=== PATIENT | male | born 1955 | race Caucasian/White ===

== ENCOUNTER 2017-07-30 14:55 | Emergency (ER) | payer OTHER, SELFPAY ==
[2017-07-30 14:56] VITALS: BP 183/96; PULSE 85; RESP 16; TEMP 36.5; O2SAT 97; BMI 32.6
[2017-07-30 16:19] LABS: Absolute Lymphocyte Count 1.73 X10^3/ul (0.83-4.51); Absolute Neutrophil Count 5.3 X10^3/uL (2.0-7.7); Basophil# 0.03 X10^3/uL; Basophil% 0.4 % (0-1); Eosinophil# 0.26 X10^3/uL; Eosinophils% 3.3 % (0-5); Hematocrit 44.6 % (40-54); Hemoglobin 14.7 g/dl (13.0-16.5); Lymphocyte # 1.73 X10^3/ul (4.0); Lymphocyte % 21.9 % (19-41); Mean Corpuscular Hgb 28.1 pg (27.0-32.0); Mean Corpuscular Volume 85.3 fL (80-94); Mean Platelet Vol. 9.9 fl (6.2-12.0); Monocyte# 0.61 X10^3/uL; Monocyte% 7.7 % (0-10); Neutrophil # 5.26 X10^3/uL (2.7-7.7); Neutrophil % 66.7 % (47-70); Platelet Count 203 K/mm3 (150-450); RBC Distribution Width CV 13.5 % (11.6-14.6); RBC Distribution Width SD 42.1 fl (35.1-43.9); Red Blood Count 5.23 M/mm3 (4.6-6.2); White Blood Count 7.9 K/mm3 (4.4-11.0)
[2017-07-30 16:21] LABS: POSITIVE COUNT NO; POSITIVE DIFFERENTIAL NO; POSITIVE MORPHOLOGY NO
[2017-07-30 16:39] LABS: ALB/GLOB Ratio 1.2 RATIO (0.9-2.4); AST(SGOT) 10 U/L (15-37); Alanine Aminotransfer ALT/SGPT 19 U/L (16-61); Albumin, Serum 4.1 g/dL (3.2-5.0); Alkaline Phosphatase 89 U/L (45-117); Anion Gap 7 (5-15); BUN 20 mg/dL (7-18); BUN/Creat Ratio 29.4 RATIO (10-20); Calcium,Total 8.7 mg/dL (8.5-10.1); Chloride 109 mmol/L (98-107); Creatinine, Serum 0.68 mg/dL (0.70-1.30); EST Glomerular Filtration Rate 126 mL/min (>60); Est Glom Filt Rate - Afr Amer 153 mL/min (>60); Estimated Creatinine Clearance 128.38 ml/min; Globulin 3.3 g/dL (2.2-4.2); Glucose 94 mg/dL (74-106); Lipase 80 U/L (73-393); Potassium 3.8 mmol/L (3.5-5.1); Protein, Total 7.4 g/dL (6.4-8.2); Sodium Level 142 mmol/L (136-145)
--- NOTE | 2017-07-30 16:51 | ED.VISSUMM ---
- ER Visit Summary Date of Service: 07/30/17 Chief Complaint: Abdominal pain History of Present Illness: The patient is a 61 M who presents with abdominal pain for 1 month. His pain is epigastric. It is aching. It radiates through to the back. He complains of moderate pain currently. He denies nausea vomiting or diarrhea. No fevers. No urinary symptoms. He states that he has had outpatient renal ultrasounds as well as CT of the abdomen and pelvis but is not clear on the results. These were done at [facility]. Physical Examination: Afebrile vitals are notable for hypertension Heart regular rate and rhythm Lungs are clear Abdomen soft nondistended he has mild epigastric tenderness without guarding without rebound he does not have Flores's sign no appreciable mass Test Results: CBC CMP lipase unremarkable. I was able to review outpatient studies from [facility] his renal ultrasound was normal except for suspected right lower pole renal cyst. CT of the abdomen and pelvis was notable for multifocal splenule formation the largest suspected splenule abuts the posterior aspect of the pancreatic tail and cannot be distinguished from the pancreatic tail and so pancreatic neoplasm could not be entirely excluded. No acute process otherwise. Emergency Department Course and Treatment: Since laboratory studies are unremarkable. He is resting comfortably he was advised of his imaging results. He was advised of the need for further outpatient workup and I did advise that based on the imaging they could not completely exclude pancreatic neoplasm. He was advised he may benefit from gastroenterology referral. All questions answered at bedside. He understands return for new or worsening symptoms. He was discharged. Treatment Plan: [] Disposition: Discharge Impression: Abdominal pain This note was generated with [employer] dictation software. It may contain incorrect words, spelling, and punctuation that were not noted in review of the chart prior to signing ED Disposition - Plan for ED Patient: Chief Complaint: Abd Pain Referrals: Alexander Campos DO [Primary Care Provider] -
--- NOTE | 2017-07-30 16:54 | ED.DCSUM_ITS ---
- ER Visit Summary Date of Service: 07/30/17 Chief Complaint: Abdominal pain History of Present Illness: The patient is a 61 M who presents with abdominal pain for 1 month. His pain is epigastric. It is aching. It radiates through to the back. He complains of moderate pain currently. He denies nausea vomiting or diarrhea. No fevers. No urinary symptoms. He states that he has had outpatient renal ultrasounds as well as CT of the abdomen and pelvis but is not clear on the results. These were done at [facility]. Physical Examination: Afebrile vitals are notable for hypertension Heart regular rate and rhythm Lungs are clear Abdomen soft nondistended he has mild epigastric tenderness without guarding without rebound he does not have Flores's sign no appreciable mass Test Results: CBC CMP lipase unremarkable. I was able to review outpatient studies from [facility] his renal ultrasound was normal except for suspected right lower pole renal cyst. CT of the abdomen and pelvis was notable for multifocal splenule formation the largest suspected splenule abuts the posterior aspect of the pancreatic tail and cannot be distinguished from the pancreatic tail and so pancreatic neoplasm could not be entirely excluded. No acute process otherwise. Emergency Department Course and Treatment: Since laboratory studies are unremarkable. He is resting comfortably he was advised of his imaging results. He was advised of the need for further outpatient workup and I did advise that based on the imaging they could not completely exclude pancreatic neoplasm. He was advised he may benefit from gastroenterology referral. All questions answered at bedside. He understands return for new or worsening symptoms. He was discharged. Treatment Plan: [] Disposition: Discharge Impression: Abdominal pain This note was generated with [employer] dictation software. It may contain incorrect words, spelling, and punctuation that were not noted in review of the chart prior to signing ED Disposition - Plan for ED Patient: Chief Complaint: Abd Pain Referrals: Alexander Campos DO [Primary Care Provider] -
--- NOTE | 2017-07-30 16:54 | ED.DEP ---
ED Disposition - Plan for ED Patient: Chief Complaint: Abd Pain Instructions: ED Abdominal Pain Unkn Cause Male Referrals: Alexander Campos DO [Primary Care Provider] -
[2017-07-30 17:03] VITALS: PULSE 71; RESP 16; O2SAT 98
== END 2017-07-30 17:03 | disposition home or self-care (01) ==
PROVIDERS: Emergency Provider Emergency Medicine; Family Provider Family Medicine; PCP Family Medicine
DX: R10.13 Epigastric pain (principal); Z79.899 Other long term (current) drug therapy
CPT/HCPCS: 80053; 83690; 85025; 99283

== ENCOUNTER → 2017-08-03 14:28 | Outpatient (CLI) | payer OTHER, SELFPAY ==
[2017-08-03 15:53] LABS: AST(SGOT) 11 U/L (15-37); Alanine Aminotransfer ALT/SGPT 20 U/L (16-61); Albumin, Serum 4.3 g/dL (3.2-5.0); Alkaline Phosphatase 93 U/L (45-117); Bilirubin, Direct 0.12 mg/dL (0.00-0.30); Lipase 81 U/L (73-393); Protein, Total 7.3 g/dL (6.4-8.2)
== END ==
PROVIDERS: Family Provider Family Medicine; PCP Family Medicine; Visit Provider Internal Medicine Gastroenterology
DX: R10.9 Unspecified abdominal pain (principal)
CPT/HCPCS: 36415; 80076; 83690

== ENCOUNTER → 2017-08-13 15:06 | Outpatient (CLI) | payer OTHER, SELFPAY ==
[2017-08-13 19:02] LABS: Lipase 68 U/L (73-393)
[2017-08-15 11:27] LABS: Carbohydrate AG 19-9 2 U/mL (0-35)
== END ==
PROVIDERS: Family Provider Family Medicine; PCP Family Medicine; Visit Provider Internal Medicine Gastroenterology
DX: K86.89 Other specified diseases of pancreas (principal)
CPT/HCPCS: 36415; 83690; 86301

== ENCOUNTER → 2017-08-20 06:13 | Outpatient (CLI) | payer OTHER, SELFPAY ==
--- NOTE | 2017-08-20 06:34 | MRI_ITS ---
STUDY: MRI ABDOMEN WITH AND WITHOUT CONTRAST REASON FOR EXAM: Male, 61 years old. Abdominal pain. Follow-up of recent abnormal CT. TECHNIQUE: Standardized fat and water weighted pulse sequences were obtained in all 3 orthogonal planes post contrast administration. 10 ml of Gadavist contrast material was administered intravenously for the contrast portion of the examination. Several images are limited by patient motion. COMPARISON: CT of the abdomen and pelvis dated July 24, 2017. FINDINGS: The visualized lung bases are unremarkable. The visualized portions of the heart are within normal limits. Normal liver. Normal gallbladder and extrahepatic biliary system. The spleen has a lobular contour. There is no definite evidence for splenic mass. Normal pancreas. Normal bilateral adrenal glands. The right kidney has several areas of decreased enhancement and T1 hypointensity measuring approximately 212.8 mm in greatest dimension. There are also areas of decreased enhancement within the left kidney that have decreased T1 signal measuring up to 1.4 cm in size. These lesions appear to have increased T2 hyperintensity These likely represent cysts. Normal visualized stomach. There is no evidence for dilated bowel, or ascites. Stool is visible throughout the colon. The appendix is visualized and appears normal. Normal abdominal aorta. Normal inferior vena cava. Normal retroperitoneum. Normal abdominal wall. Normal osseous structures. MRI/MRI Abd WITH and W/O Contrast IMPRESSION: 1. There is no MR evidence for splenic mass. 2. Multiple small renal cysts. Electronically Signed: Donna Romeo MD at 9:44 EDT , Service support ,
== END ==
PROVIDERS: Family Provider Family Medicine; PCP Family Medicine; Visit Provider Internal Medicine Gastroenterology
DX: R10.9 Unspecified abdominal pain (principal); R93.8 Abnormal findings on diagnostic imaging of other specified body structures
CPT/HCPCS: 74183; A9585

== ENCOUNTER 2017-09-07 19:34 | Emergency (ER) | payer OTHER, SELFPAY ==
[2017-09-07 19:36] VITALS: BP 172/97; PULSE 93; RESP 18; TEMP 36.1; O2SAT 97; BMI 29.8
[2017-09-07 21:06] LABS: Absolute Lymphocyte Count 1.57 X10^3/ul (0.83-4.51); Absolute Neutrophil Count 4.5 X10^3/uL (2.0-7.7); Basophil# 0.02 X10^3/uL; Basophil% 0.3 % (0-1); Eosinophils% 2.9 % (0-5); Hematocrit 42.3 % (40-54); Lymphocyte # 1.57 X10^3/ul (4.0); Mean Corp Hgb Conc 33.1 g/gl (32-36); Mean Corpuscular Hgb 27.8 pg (27.0-32.0); Mean Corpuscular Volume 83.9 fL (80-94); Mean Platelet Vol. 10.2 fl (6.2-12.0); Monocyte# 0.56 X10^3/uL; Monocyte% 8.2 % (0-10); Neutrophil # 4.49 X10^3/uL (2.7-7.7); Neutrophil % 65.6 % (47-70); Platelet Count 205 K/mm3 (150-450); RBC Distribution Width CV 13.5 % (11.6-14.6); RBC Distribution Width SD 40.7 fl (35.1-43.9); Red Blood Count 5.04 M/mm3 (4.6-6.2); White Blood Count 6.8 K/mm3 (4.4-11.0)
[2017-09-07 21:07] LABS: POSITIVE COUNT NO; POSITIVE DIFFERENTIAL NO; POSITIVE MORPHOLOGY NO
[2017-09-07 21:14] LABS: Anion Gap 6 (5-15); BUN 16 mg/dL (7-18); BUN/Creat Ratio 19.5 RATIO (10-20); Calcium,Total 9.1 mg/dL (8.5-10.1); Chloride 109 mmol/L (98-107); Creatinine, Serum 0.82 mg/dL (0.70-1.30); EST Glomerular Filtration Rate 102 mL/min (>60); Est Glom Filt Rate - Afr Amer 123 mL/min (>60); Estimated Creatinine Clearance 106.46 ml/min; Glucose 104 mg/dL (74-106); Sodium Level 142 mmol/L (136-145)
[2017-09-07 22:12] LABS: AST(SGOT) 11 U/L (15-37); Alanine Aminotransfer ALT/SGPT 20 U/L (16-61); Albumin, Serum 4.2 g/dL (3.2-5.0); Alkaline Phosphatase 91 U/L (45-117); Bilirubin, Direct 0.11 mg/dL (0.00-0.30); Globulin 3.1 g/dL (2.2-4.2); Lipase 86 U/L (73-393); Protein, Total 7.3 g/dL (6.4-8.2)
[2017-09-07] MEDS: Morphine 4 MG/ML Syringe IV (22:26)
[2017-09-07] MEDS: Ondansetron 4 MG/2 ML Vial IV (22:26)
[2017-09-07] MEDS: 0.9% Normal Saline 1,000 ML 150 ML IV (22:26)
[2017-09-07 22:29] VITALS: BP 174/90; PULSE 74; RESP 16
--- NOTE | 2017-09-07 23:49 | ED.DCSUM_ITS ---
- ER Visit Summary Date of Service: 09/07/17 Chief Complaint: Abdominal pain History of Present Illness: The patient is a 61 M with a 2 month history of worsening abdominal pain. He points to epigastric and right upper quadrant region. He has been seen by his PCP as well as GI. He has had ultrasounds, CAT scan, MRI and MRA, as well as endoscopy. Patient states the next step is to get in ultrasound endoscopy. Patient presents emergency room tonight stating that his ibuprofen that he normally takes is no longer helping his pain. He has not had fever or chills. Pain is not worsened by movement. He states pain is not affected by food but he does eat mostly salads and tries to avoid fatty food. Physical Examination: Blood pressure on arrival was 172/97, other vitals normal. Patient sitting upright in bed no acute distress. He is nontoxic appearing. Head neck examination is unremarkable. Heart is regular rate and rhythm. He does have a 2/6 murmur noted. Lungs are clear. Abdomen is soft with mild tenderness in epigastric region. Hypoactive bowel sounds are noted. There is no guarding or rebound. Back examination reveals no focal tenderness. There is no CVA tenderness or rash. Test Results: CBC and chemistry studies are normal. LFTs and lipase are normal. Emergency Department Course and Treatment: I did review the prior MRI is performed to the hospital. I also reviewed notes from a previous ER visit which state that the testing from the outside hospital was personally reviewed at that time. I discussed with the patient that at this time I do not have a specific cause for his pain. He has undergone multiple test with further tests pending. I treated him with morphine and Zofran here. On repeat evaluation he is resting more comfortably. He will be given a short course of [place] for home if needed. Treatment Plan: [] Disposition: Discharge Impression: Abdominal pain, uncertain etiology This note was generated with [employer] dictation software. It may contain incorrect words, spelling, and punctuation that were not noted in review of the chart prior to signing ED Disposition - Plan for ED Patient: Disposition: Home or Assisted Living Chief Complaint: Abd Pain Instructions: ED Abdominal Pain Unkn Cause Male Prescriptions: Hydrocodone Bitart/Apap 5-325 [[place] 5MG-325MG] 1 tablet PO Q6H PRN PRN 3 Days # 10 tablet PRN Reason: Pain Referrals: Alexander Campos DO [Primary Care Provider] - Ramirez Douglas MD [STAFF PHYSICIAN] - As soon as possible
--- NOTE | 2017-09-07 23:49 | ED.DEP ---
ED Disposition - Plan for ED Patient: Disposition: Home or Assisted Living Chief Complaint: Abd Pain Instructions: ED Abdominal Pain Unkn Cause Male Prescriptions: Hydrocodone Bitart/Apap 5-325 [[place] 5MG-325MG] 1 tablet PO Q6H PRN PRN 3 Days #10 tablet PRN Reason: Pain Referrals: Alexander Campos DO [Primary Care Provider] - Ramirez Douglas MD [STAFF PHYSICIAN] - As soon as possible
[2017-09-08] MEDS: HYDROcodone Bitartrate/Apap 5/325 Tablet PO (00:14)
[2017-09-08 00:15] VITALS: BP 160/90; PULSE 78; RESP 16
== END 2017-09-08 00:16 | disposition home or self-care (01) ==
PROVIDERS: Emergency Provider Emergency Medicine; Family Provider Family Medicine; PCP Family Medicine
DX: R10.13 Epigastric pain (principal); Z86.73 Personal history of transient ischemic attack (TIA), and cerebral infarction without residual deficits
CPT/HCPCS: 80048; 80076; 83690; 85025; 96361; 96374; 96375; 99283; J7030; J2405

== ENCOUNTER → 2017-09-11 16:50 | Outpatient (CLI) | payer OTHER, SELFPAY ==
[2017-09-11 17:33] LABS: Erythrocyte Sedimentation Rate 4 mm/hr (0-20)
[2017-09-11 18:33] LABS: CRP < 2.90 mg/L (0.0-3.0)
== END ==
PROVIDERS: Family Provider Family Medicine; PCP Family Medicine; Visit Provider Internal Medicine Gastroenterology
DX: R10.9 Unspecified abdominal pain (principal)
CPT/HCPCS: 36415; 85652; 86140

== ENCOUNTER 2017-10-12 09:21 | Day surgery (SDC) | payer OTHER, SELFPAY ==
[2017-10-12] VITALS (10 sets, daily range): BP systolic 116–178; BP diastolic 70–93; PULSE 69–91; RESP 16; TEMP 36.5–36.7; O2SAT 95–100; BMI 29.9
--- NOTE | 2017-10-12 11:15 | RAD_ITS ---
STUDY: X-RAY - LUMBAR SPINE REASON FOR EXAM: Male, 61 years old. Celiac plexus block. TECHNIQUE: 9: Coned-down view(s) of the lumbar spine were obtained intraoperatively. COMPARISON: None FINDINGS: Fluoroscopic services provided for celiac plexus block. RAD/Fluor Guidance for Spine Inj IMPRESSION: Intraoperative fluoroscopic services provided for celiac plexus block. Electronically Signed: Jake Obrien MD at 14:20 EDT Tel [phone], Service support ,
== END 2017-10-12 13:19 | disposition home or self-care (01) ==
LOC: SDC 09:22 → AC 09:23
PROVIDERS: Family Provider Family Medicine; PCP Family Medicine; Visit Provider Anesthesiology Pain Medicine
PROC: 3E0T3BZ Introduction of Anesthetic Agent into Peripheral Nerves and Plexi, Percutaneous Approach (ICD-10-PCS; CPT 64530; principal; 2017-10-12 11:10)
DX: C25.9 Malignant neoplasm of pancreas, unspecified (principal); E11.9 Type 2 diabetes mellitus without complications; E78.00 Pure hypercholesterolemia, unspecified; Z95.2 Presence of prosthetic heart valve
CPT/HCPCS: 64483; 77003; J7120

== ENCOUNTER → 2017-10-15 13:28 | Outpatient (CLI) | payer OTHER, SELFPAY ==
--- NOTE | 2017-10-15 13:40 | MRI_ITS ---
STUDY: MRI ABDOMEN WITH AND WITHOUT CONTRAST REASON FOR EXAM: Male, 61 years old. F/U MRI ABD, PANCREATIC CA recheck, c/o abd and back pain TECHNIQUE: Standardized fat and water weighted pulse sequences were obtained in all 3 orthogonal planes post contrast administration. 9 ml of Gadavist contrast material was administered intravenously for the contrast portion of the examination. COMPARISON: ct 4.10.18 and mri of 5.7.18 FINDINGS: The visualized lung bases are unremarkable. The visualized portions of the heart are within normal limits. Normal liver. Normal gallbladder and extrahepatic biliary system. Normal spleen. There is a mass along the head of the pancreas. This measures 34 x 28mm. The mass surrounds the SMA. Invasion of the SMA is difficult to exclude. The mass has heterogeneous enhancement. There is a central area of low T1 signal measuring 13 mm within the lesion. This may be an area of necrosis. Normal bilateral adrenal glands. Multiple bilateral T2 hyperintensities in both kidneys consistent for cysts. These do not enhance. Normal visualized stomach. Normal small intestine. Normal colon. There is non-visualization of the appendix. There is diffuse atherosclerotic calcification of the abdominal aorta, without a demonstrated aneurysm. Normal inferior vena cava. Normal retroperitoneum. Normal abdominal wall. There are diffuse degenerative changes of the visualized lumbar spine. MRI/MRI Abd WITH and W/O Contrast IMPRESSION: There is a mass surrounding the SMA. The mass appears to extend from the pancreatic head. This confirms the patient's known pancreatic neoplasm. It appears stable in size since the prior study. Occlusion of the SMA is difficult to ascertain. Electronically Signed: Davonte Hernandez MD at 21:23 EDT , Service support ,
== END ==
PROVIDERS: Family Provider Family Medicine; PCP Family Medicine; Visit Provider Internal Medicine Medical Oncology
DX: C25.9 Malignant neoplasm of pancreas, unspecified (principal)
CPT/HCPCS: 74183; A9585; A4216

== ENCOUNTER 2017-10-22 07:16 | Day surgery (SDC) | payer OTHER, SELFPAY ==
[2017-10-22 07:38] VITALS: BP 154/78; PULSE 85; RESP 18; TEMP 36.6; O2SAT 100; BMI 29.5
[2017-10-22 07:56] LABS: Bedside Glucose 119 mg/dL (70-110)
[2017-10-22] MEDS: Cefazolin 2 GM in 0.9% Normal Saline 100 ML IV (08:50)
[2017-10-22] MEDS: Bupivacaine Mpf 0.5% 30 ML VIAL (09:04)
--- NOTE | 2017-10-22 09:52 | RAD_ITS ---
STUDY: X-RAY CHEST REASON FOR EXAM: Male, 61 years old. Port placement. TECHNIQUE: Single AP portable view of the chest. COMPARISON: None. FINDINGS: A left-sided portacatheter has been placed. The tip is at the junction of the superior vena cava and right atrium. The lungs are clear and expanded. There is no demonstrated pleural abnormality. Normal size heart. Normal mediastinum and davey. Normal visualized pulmonary arteries. Normal visualized aortic arch and descending thoracic aorta. Normal visualized thoracic spine. Normal visualized ribs, clavicles, and shoulders. There is no demonstrated abnormality of the visualized soft tissue structures of the upper abdomen. RAD/CXR for Line Placement IMPRESSION: The tip of the left grupo catheter is at the junction of the superior vena cava and right atrium. Electronically Signed: Jake Obrien MD at 10:28 EDT Tel [phone], Service support ,
[2017-10-22 09:53] VITALS: BP 128/84; BP 154/78; PULSE 84; RESP 16; TEMP 36.6; O2SAT 99
[2017-10-22 09:55] VITALS: BP 131/65; BP 154/78; PULSE 84; RESP 16; O2SAT 100
--- NOTE | 2017-10-22 09:56 | OP.PCM_ITS ---
Report of Operation Date of Procedure: 10/22/17 Pre-Operative Diagnosis: Z 45.2, pancreatic cancer Post-Operative Diagnosis: Same Surgery/Procedure Performed:: 1. Placement of left internal jugular port. 2. Use of ultrasound. 3. Use of fluoroscopy Type of Anesthesia:: MAC/Supplemental/Local Anesthesiologist: Paolo Aguilera Special Medications: Ancef 2 g IV ?1 Estimated Blood Loss (mL): <5cc Fluids Replaced: Per anesthesia Description of Procedure: After informed consent was given, the patient was brought to the operating room and placed in the supine position. Appropriate time out protocol was followed. He was then given IV conscious sedation for anesthesia. The patient 's bilateral upper chest and neck were then prepped with a surgical skin preparation and sterile surgical drapes were placed. After proper landmarks were ascertained, the skin at the upper left chest area was then infiltrated with 1:1 mixture of 1% lidocaine with epinephrine and 0.5% maricaine. A needle trocar was then inserted into the left internal jugular vein with ultrasound guidance-multiple vessels were viewed with u/s and the left IJ was chosen-- and there was good aspiration of venous blood. A wire was then threaded into the needle trocar and this was visualized under fluoroscopy to ensure that the wire was in the superior vena cava. Once this was done, then the needle trocar was removed. A small skin collin was made with an 11 blade knife at the wire entrance site. The dilator with the introducer sheath attached was then placed over the wire into the left internal jugular vein via the Seldinger technique and this was visualized under fluoroscopy. The dilator and sheath were in proper position as visualized by fluoroscopy. A subcutaneous pocket was then created caudad to the catheter insertion site. A transverse skin incision was made after the skin and subcutaneous tissues were infiltrated with local anesthetic. Blunt dissection was then used to create a space large enough for placement of the subcutaneous port. The catheter was then tunneled into the subcutaneous pocket. The wire and dilator were then removed. The catheter was then threaded into the introducer sheath and was positioned with its tip at the junction of the superior vena cava and the right atrium as visualized under fluoroscopy. The excess catheter was transected. The catheter was then attached to the subcutaneous port using manufacturers guidelines. The catheter was flushed with a heparin saline mixture prior to placement. Hemostasis was carefully controlled with electrocautery. The port was sutured to the subcutaneous fascia using 3-0 PDS suture at two sites. The port was then placed in the subcutaneous pocket and the sutures were ligated. The incision were reapproximated with interrupted subdermal 3-0 vicryl sutures. The skin was reapproximated with 3-0 nylon suture in a interrupted fashion. Steristrips were used for reinforcement of the skin closure at IJ insertion site and a sterile opsite dressings were applied. The patient tolerated the procedure well. Implants Used: [employer] PowerPort isp M.R.I. 6Fr Lot [id number] Grafts/Implants Used: [employer] PowerPort isp M.R.I. 6Fr Lot [id number] - Complications none
--- NOTE | 2017-10-22 09:58 | DCINST_ITS ---
Discharge Diet: No Restrictions May shower in (days): 5 - Keep the port clean and dry for 5 days and remain covered until sutures removed Lifting Restrictions: No lifting greater than 15 pounds with the left arm for 1 week Call your doctor if your incision/area has: Continuous Slow Oozing, Sudden Increased Bleeding, Increased Pain/ Swelling, Increased Redness, Foul Smelling Discharge, Swelling at the incision site Call your doctor if you observe: Fever of 101 or Higher Remove Dressing in (days):: 3 - Okay to remove the OpSite from the neck tomorrow Allergies/Adverse Reactions: Allergies No Known Allergies Allergy (Verified 10/19/17 15:10) Medications to take at Discharge Hydrocodone Bitart/Apap 5-325 [[place] 5MG-325MG] 1 tab PO Q6H PRN PRN 3 Days #10 tab 09/07/17 Ibuprofen [Ibu] 800 mg PO Q6H PRN PRN 10/16/17 Primary Care Physician: Alexander Campos DO [Primary Care Provider] - Test Results: Test results from this visit will be discussed in further detail at your follow- up appointment, if applicable. Please Follow Up With: Bessy Wakefield MD - After 5:00/weekends call [phone] with any concerns When: Call the office tomorrow for a follow-up appointment in 10 days to remove s
[2017-10-22 10:00] VITALS: BP 114/72; BP 154/78; PULSE 83; RESP 16; O2SAT 99
[2017-10-22 10:09] VITALS: BP 113/79; BP 154/78; PULSE 86; RESP 16; TEMP 36.4; O2SAT 99
[2017-10-22 10:35] VITALS: BP 154/78
== END 2017-10-22 10:37 | disposition home or self-care (01) ==
LOC: SDC 07:17 → AC 07:18
PROVIDERS: Family Provider Family Medicine; PCP Family Medicine; Visit Provider Surgery
PROC: (CPT 36571; principal; 2017-10-22 08:45)
DX: C25.0 Malignant neoplasm of head of pancreas (principal); Z45.2 Encounter for adjustment and management of vascular access device; Z95.2 Presence of prosthetic heart valve; Z85.47 Personal history of malignant neoplasm of testis; Z79.891 Long term (current) use of opiate analgesic
CPT/HCPCS: 00532; 36571; 71045; 77001; 82962; J7120; C1788

== ENCOUNTER → 2017-12-20 09:16 | Outpatient (CLI) | payer OTHER, SELFPAY | PROVIDERS: Family Provider Family Medicine; PCP Family Medicine; Visit Provider Nurse Practitioner Family | DX: C25.9 Malignant neoplasm of pancreas, unspecified (principal) | CPT/HCPCS: 74183; A9585 ==

== ENCOUNTER → 2018-06-11 13:24 | Outpatient (CLI) | payer OTHER, SELFPAY ==
[2018-05-20 10:00] VITALS: BMI 34.5
--- NOTE | 2018-06-11 13:26 | ECHODONC_ITS ---
Reason For Study: HTN Procedure This was a 2D Doppler, Color Flow transthoracic echocardiogram. Myocardial strain analysis was performed in this exam to aid in the assessment of cardiac function. Exam performed in department. Left Ventricle Normal LV size. Mild concentric left ventricular hypertrophy. Left ventricular systolic function is normal. The estimated ejection fraction is 55 %. The global longitudinal strain = -12.5% (abnormal). No regional wall motion abnormalities noted. Right Ventricle Normal RV size. Normal systolic function. Atria The left atrium is mildly enlarged. Normal right atrium. Mitral Valve There is mild to moderate mitral annular calcification. Trivial eccentric mitral valve insufficiency. Tricuspid Valve Normal tricuspid valve. Mild tricuspid valve insufficiency. Pulmonary artery systolic pressure is 25 mmHg. Aortic Valve Mean aortic valve gradient 10 mmHg. Peak aortic valve gradient 17 mmHg. Stable appearing bioprosthetic aortic valve apparatus. Great Vessels Normal aortic root. The pulmonary artery is normal size. Normal inferior vena cava. Pericardium/Pleural No pericardial effusion. MMode/2D Measurements & Calculations LVIDd: 4.0 cm IVSd: 1.2 cm LVOT diam: 2.0 cm LVIDs: 2.3 cm LVPWd: 1.1 cm LVOT area: 3.2 cm2 RVDd: 3.4 cm FS: 41.8 % Ao root diam: 2.9 cm LAV(MOD-bp): 64.5 ml LA A4 area: 22.9 cm2 LAV(MOD-bp) Indexed: 27.5 ml/m2 LAV(MOD-sp2): 51.4 ml LAV(MOD-sp4): 68.8 ml LA dimension(2D): 4.4 cm RA A4 area: 13.2 cm2 Time Measurements MV dec time: 0.32 sec Doppler Measurements & Calculations MV E max adonis: 118.6 cm/sec Lat Peak E' Adonis: 7.2 cm/sec Med Peak E' Adonis: 4.5 cm/sec MV A max adonis: 141.6 cm/sec E/E' lat: 16.4 E/E' med: 26.3 MV E/A: 0.84 MV V2 max: 157.2 cm/sec Ao V2 max: 210.1 cm/sec LV V1 max: 127.6 cm/sec MV max P.9 mmHg Ao max P.7 mmHg LV V1 max P.5 mmHg MV V2 mean: 89.5 cm/sec Ao V2 mean: 152.3 cm/sec LV V1 mean P.1 mmHg MV mean P.5 mmHg Ao mean P.2 mmHg LV V1 mean: 97.3 cm/sec MV V2 VTI: 38.4 cm Ao V2 VTI: 38.1 cm LV V1 VTI: 23.4 cm MVA(VTI): 2.0 cm2 KIMBERLY(I,D): 2.0 cm2 KIMBERLY(V,D): 1.9 cm2 SV(LVOT): 74.9 ml TR max adonis: 228.8 cm/sec MV P1/2t-pr_phl: 122.1 msec TR max P.1 mmHg Interpretation Summary Normal LV size. Mild concentric left ventricular hypertrophy. Left ventricular systolic function is normal. The estimated ejection fraction is 55 %. The global longitudinal strain = -12.5% (abnormal). Stable appearing bioprosthetic aortic valve apparatus. Mean aortic valve gradient 10 mmHg. Ordering Physician: Geovany Ceja Referring Physician: SHE HUA Performed By: Iona Cunningham, RDCS, RVT
== END ==
PROVIDERS: Family Provider Family Medicine; PCP Family Medicine; Referring Provider Internal Medicine Cardiovascular Disease; Visit Provider Internal Medicine Cardiovascular Disease
DX: I10 Essential (primary) hypertension (principal); C25.9 Malignant neoplasm of pancreas, unspecified; E11.9 Type 2 diabetes mellitus without complications; E78.5 Hyperlipidemia, unspecified; I31.3 Pericardial effusion (noninflammatory); I35.9 Nonrheumatic aortic valve disorder, unspecified; I51.7 Cardiomegaly; Z95.2 Presence of prosthetic heart valve; Z82.41 Family history of sudden cardiac death; Z79.899 Other long term (current) drug therapy
CPT/HCPCS: 0399T; 93306

== ENCOUNTER → 2018-09-23 | Outpatient (CLI) | payer OTHER, SELFPAY ==
[2018-09-12 12:02] VITALS: BMI 34.2
--- NOTE | 2018-09-23 06:05 | MRI_ITS ---
STUDY: MRI ABDOMEN WITH AND WITHOUT CONTRAST REASON FOR EXAM: Male, 62 years old. Pancreatic cancer TECHNIQUE: Standardized fat and water weighted pulse sequences were obtained in all 3 orthogonal planes post contrast administration. 20 IV Dotarem was administered for the contrast portion of the examination. COMPARISON: 12/20/2017 FINDINGS: The visualized lung bases are unremarkable. The visualized portions of the heart are within normal limits. Normal liver. Normal gallbladder and extrahepatic biliary system. Normal spleen. Normal pancreas. The previously described mass encasing the proximal superior mesenteric artery inferior to the body the pancreas and anterior to the uncinate process of the pancreas measures 2.3 x 2.3 cm which is essentially unchanged when compared with the prior study. 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 Normal bilateral adrenal glands. Normal right kidney. Normal left kidney. Normal visualized stomach. Normal small intestine. Normal colon. There is non-visualization of the appendix. Normal abdominal aorta. Normal inferior vena cava. Normal retroperitoneum. Normal abdominal wall. Normal osseous structures. 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 Electronically Signed: Alejandro Villegas MD at 9:24 EDT Tel , Service support ,
== END | disposition home or self-care (01) ==
LOC: MRI 06:05
PROVIDERS: Family Provider Family Medicine; PCP Family Medicine; Referring Provider Internal Medicine Medical Oncology; Visit Provider Internal Medicine Medical Oncology
DX: C25.9 Malignant neoplasm of pancreas, unspecified (principal)
CPT/HCPCS: 74183; A9575; A4216

== ENCOUNTER 2018-11-06 11:07 | Inpatient (IN) | payer OTHER, SELFPAY ==
[2018-09-12 12:02] VITALS: BMI 34.2
[2018-10-03 10:45] VITALS: BMI 34.4
--- NOTE | 2018-10-11 13:02 | HP.PCM_ITS ---
History and Physical History and Physical Patient Name: Humberto CordobaDOB: 1955 From: LINDA ANAND PA-C DATE OF SURGERY: 11/06/2018 SCHEDULED PROCEDURE: Right total hip arthroplasty HISTORY OF PRESENT ILLNESS: Preoperative history and physical exam was performed on October 11, 2018. This is a 62-year-old male who is been having ongoing pain in his right hip for 10-15 years. The past year the pain has progressively become worse. He can reach as high as a 10/10 with activity. Patient's pain has been constant, dull, aching, sharp, stabbing. Pain is increased with going up and down stairs, sitting, walking. He has difficult time getting dressed putting his socks and shoes on. He also has difficult time with mowing his yard. He has tripped secondary to his right hip pain. Patient has tried rest with no significant relief in symptoms. He has tried physical therapy and home exercises with no relief. He has been using occasional [id number] ibuprofen that takes the edge off. Patient denies previous surgery on the right hip. Patient has lost approximately 30 pounds. Patient does have medical history that is pertinent for inoperable pancreatic cancer, diabetes. Patient currently denies chest pain, shortness of breath, fevers chills, recent infections. Patient was treated with chemotherapy for the pancreatic cancer but is not currently on any treatments. We are obtaining surgical clearance from the primary care physician. REVIEW OF SYSTEMS: ROS: Const: Denies anorexia, change in appetite, fever, hard of hearing, vision problems and weight change. CV: Reports heart murmur, but denies chest pain, irregular heartbeat and peripheral vascular disease. Resp: Denies asthma, cough, pneumonia, sleep apnea, SOB, tuberculosis and wheezing. GI: Denies constipation, diarrhea, difficulty swallowing, heartburn, nausea, bloody stools and vomiting. : Urinary: denies incontinence. Musculo: Reports limp, trouble walking and weakness, but denies leg swelling. Skin: Denies Raynaud's, history of shingles and tattoo. Neuro: Reports numbness/tingling but denies ambulatory dysfunction, dizziness and tremor. Psych: Denies anxiety, depression, insomnia, mental illness and stress. Kaz/Lymph: Denies anemia, bleeding/bruising tendency and past transfusion. Reviewed and updated. PAST MEDICAL HISTORY: Advance Care Plan: Other Directive, LIVING WILL Effective Date: 10/11/2018 Other Directive, POA Effective Date: 10/11/2018 PMH: Medical Problems: Arthritis Cancer - TESTICULAR 1982, PANCREATIC Hypercholesterolemia, Diabetes Accidents: Fracture - LT FOOT,TOES, CHILD Surgical Hx: Tonsillectomy - CHILD LT Ankle - EARLY Microdiskectomy - L3 1995 L5-S1 2000 C5 2002 Spinal Fusion - C5-6 Testicular Cancer SX Hernia Repair - CHILD RT Arthroscopy - (11/10/2008) CASS @ [facility] Aortic Value Replaced - (09/2009) [facility] Prostate - (2015) Cervical - (03/2015) ADDED MORE HARDWARE Anesthesia Complications: Nausea Assistive Devices: None Reviewed and updated. SOCIAL HISTORY: SH: Marital: .Occupation: Retired.Work Status: Retired.Hand Dominance: Right- handed. Personal Habits: Cigarette Use: Never.Alcohol: Denies use.Drug Use: Denies Use.Enjoy Exercising: Exercises 1-3 X/Week. Reviewed, no changes. VITALS: Ht: 72 Wt: 248lb Wt k.493 BMI: 33.6 BP: 146/84 Pulse: 78 Resp: 60 T: 97.5 T: 36.4C ALLERGIES: No Known Drug Allergy MEDICATIONS: Lisinopril 20 mg 1 by mouth every day, Pantoprazole Sodium 20 mg take one tablet by mouth every day, Fentanyl 12 mcg/HR fentanyl patch to start after oxycontin cr 15 mg every 12 hour is exhausted start apply 1 patch every 72 hours as needed PRE-OP EXAM: General appearance:NORMAL Other: Eyes: Conjunctivae and lids: NORMAL Pupils: ERR Ears, Nose, Mouth, and Throat: NORMAL Other: Inspection of lips, teeth and gums: NORMAL Other: Neck: Examination of neck: no masses noted. Respiratory: Assessment of respiratory effort: NORMAL Other: Auscultation of lungs: clear to auscultation no wheezes, rhonchi or rales. Cardiovascular: Auscultation of heart: regular rate and rhythm, positive systolic murmur. Gastrointestinal: Exam of abdomen: soft, nontender, nondistended bowel sounds present. PHYSICAL EXAMINATION: Patient does walk with a antalgic gait. Left hip is cool to touch without erythema. There is tenderness to palpation of the greater trochanter. Range of motion left hip: Flexion 75, internal rotation to neutral, external rotation 20. Obligatory external rotation with flexion. Pain is reproduced with flexion, adduction, and internal rotation. Strength 5/5. Sensation intact to light touch. Neurovascularly intact. IMAGING STUDIES: X-rays of the right hip reveal severe osteoarthritis with joint space narrowing, subchondral sclerosis, and osteophyte formation. IMPRESSION: 1. Severe right hip osteoarthritis 2. Type 2 diabetes 3. Inoperable pancreatic cancer 4. Hypercholesterolemia 5. History of testicular cancer PLAN: Dr. Clem Beckford did discuss and review with the patient all treatment options including surgical versus nonsurgical options. Patient does wish to proceed with the above-stated procedure. Potential risks, benefits, and complications of the procedure were discussed in detail including but not limited to , infection, nerve and blood vessel damage, persistent pain, numbness, tingling, paresthesias, blood clot, pulmonary embolism, and requirement for possible further surgery. The patient expressed full understanding and has no further questions for the doctor. Patient does agree to proceed with the above-stated procedure and has signed the surgery consent form. This dictation was created using voice recognition software. Phonetic and/or gr ammatical errors may exist.. ___ I have re-examined the patient. There are no clinical changes since date of exam. ___ See progress notes for changes. ___ Dictated on admission Date: Time: Signature:
[2018-10-18 08:58] VITALS: BP 135/78; PULSE 69; RESP 16; TEMP 36.3; O2SAT 97; BMI 33.9
--- NOTE | 2018-10-18 09:23 | SDCEKG_ITS ---
Test Reason : Blood Pressure : / mmHG Vent. Rate : 071 BPM Atrial Rate : 071 BPM P-R Int : 178 ms QRS Dur : 078 ms QT Int : 382 ms P-R-T Axes : 049 007 048 degrees QTc Int : 415 ms Normal sinus rhythm Normal ECG Confirmed by ELIZABETH DESOUZA, AYO ([id number]), assignment desk editor MARGARET HASSAN ([id number]) on 10/21/2018 1:07:59 PM Referred By: Clem Beckford Confirmed By:AYO JOHNSON MD
[2018-10-18 09:48] LABS: Absolute Lymphocyte Count 0.99 X10^3/ul (0.83-4.51); Absolute Neutrophil Count 4.8 X10^3/uL (2.0-7.7); Basophil# 0.01 X10^3/uL; Basophil% 0.2 % (0-1); Eosinophil# 0.18 X10^3/uL; Eosinophils% 2.7 % (0-5); Hematocrit 40.4 % (40-54); Hemoglobin 13.1 g/dl (13.0-16.5); Lymphocyte # 0.99 X10^3/ul (4.0); Lymphocyte % 15.1 % (19-41); Mean Corp Hgb Conc 32.4 g/gl (32-36); Mean Corpuscular Hgb 27.6 pg (27.0-32.0); Mean Corpuscular Volume 85.2 fL (80-94); Mean Platelet Vol. 10.1 fl (6.2-12.0); Monocyte# 0.59 X10^3/uL; Neutrophil # 4.77 X10^3/uL (2.7-7.7); Neutrophil % 72.8 % (47-70); Platelet Count 255 K/mm3 (150-450); RBC Distribution Width CV 13.1 % (11.6-14.6); RBC Distribution Width SD 40.6 fl (35.1-43.9); Red Blood Count 4.74 M/mm3 (4.6-6.2); White Blood Count 6.6 K/mm3 (4.4-11.0)
[2018-10-18 09:53] LABS: POSITIVE COUNT NO; POSITIVE DIFFERENTIAL NO; POSITIVE MORPHOLOGY NO
[2018-10-18 10:07] LABS: Anion Gap 5 (5-15); BUN 19 mg/dL (7-18); BUN/Creat Ratio 24.4 RATIO (10-20); Calcium,Total 9.2 mg/dL (8.5-10.1); Chloride 108 mmol/L (98-107); Creatinine, Serum 0.78 mg/dL (0.70-1.30); EST Glomerular Filtration Rate 108 mL/min (>60); Est Glom Filt Rate - Afr Amer 130 mL/min (>60); Estimated Creatinine Clearance 110.54 ml/min; Glucose 119 mg/dL (74-106); Sodium Level 140 mmol/L (136-145)
[2018-10-18 10:11] LABS: Hemoglobin A1c 6.4 % (4.2-6.3)
[2018-11-06] VITALS (10 sets, daily range): BP systolic 108–149; BP diastolic 53–88; PULSE 72–81; RESP 14–16; TEMP 36.4–36.8; O2SAT 10–100; BMI 33.9
[2018-11-06] MEDS: Magnesium Sulfate 4gm/100mL 4 GM/100 ML IV.SOLN. IV (12:00)
[2018-11-06] MEDS: Lactated Ringers 1,000 ML 999 ML IV (12:15)
[2018-11-06] MEDS: Gabapentin 600 MG Tablet PO (12:16)
[2018-11-06] MEDS: Acetaminophen 500 MG Tablet 1000 MG PO ×2 (12:16→22:23)
[2018-11-06] MEDS: Scopolamine 1mg/72hr Patch 1 PATCH TRANSDERM. (12:17)
[2018-11-06 13:16] LABS: Bedside Glucose 115 mg/dL (70-110)
--- NOTE | 2018-11-06 13:45 | HIP_PTH ---
PATIENT: JACOB CANALES LOC: MS3 U#:[id number] AGE/SX: 63/M ROOM: MS312 RE11/06/[address]: Dr. Sue Santiago MD : 1955 BED: 1 DIS: 11/07/2018 SPEC #: [id number] RECD: 11/06/18 16:44 STATUS: ANGEL REJami #: [id number] MELE: 11/06/18 13:[address]: Clem Beckford DEPT: SURGICAL PATHOLOGY RECD BY: Evens Patel ENTERED: 11/07/18 10:16 SP TYPE: TOTAL HIP OTHR DR: MD Dr. Robert Kelly DO Dr. Nicholas F Kotsonis, MD Tissues: Hip, NOS Procedures: Decalcification bone/plaque Surgery Specimen Level IV HEADER OPERATION: Total hip anterior approach PRE-OP DIAGNOSIS: Severe right hip osteoarthritis TISSUE SUBMITTED: Right hip, femoral head, bone, tissue MICROSCOPIC DIAGNOSIS Bone and soft tissue of right hip, total right hip resection: Severe degenerative joint disease. FRENCH:maryuri 11/13/18 MICROSCOPIC DESCRIPTION Slides are reviewed. GROSS DESCRIPTION Received is one container designated right femoral head, bone and soft tissue. The specimen consists of a femoral head measuring 5.5 x 5.5 x 5 cm. The articular surface show focal area of erosion, eburnation and osteophyte formation. Also present in the specimen container is a detached piece of bone, most likely portion of femoral neck, measuring 5 x 4 x 1.5 cm. The soft tissue entirely consists of bone reamings and measures in aggregate 10 x 9 x 3 cm. Photographic Platemaker sections are submitted in two cassettes as follows: 1 - bone reamings, 2 - femoral head after decalcification. / ELIZ:jazmin 11/07/18 TC: 5 CPT: 32481, 57972
[2018-11-06] MEDS: Cefazolin 2 GM in 0.9% Normal Saline 100 ML IV (14:04)
--- NOTE | 2018-11-06 15:03 | RAD_ITS ---
STUDY: X-RAY - PELVIS AND RIGHT HIP REASON FOR EXAM: Male, 63 years old. Right hip replacement TECHNIQUE: Fluoroscopic views of the pelvis and hip. COMPARISON: March 30 2017 FINDINGS: Right hip prosthesis noted in anatomic alignment and position RAD/Hip 1 view with Pelvis IMPRESSION: Status post right hip prosthesis placement Electronically Signed: Alex Marx MD at 17:22 EDT , Service support ,
--- NOTE | 2018-11-06 15:45 | OP.PCM_ITS ---
Report of Operation Pre-Operative Diagnosis: Right hip primary osteoarthritis Post-Operative Diagnosis: Right hip primary osteoarthritis Surgery/Procedure Performed:: Right direct anterior total hip replacement Description of Surgical Findings:: Stable hip with equal leg lengths woolen tester: Alexey Krishnamurthy Type of Anesthesia:: General Anesthesiologist: Helder Solano Special Medications: 2 g Ancef, 1 g TXA at incision, 1 g TXA closure, 10 mg Decadron, joint cocktail (5 mg Duramorph, 30 mL of 0.5% Ropivicaine, 1000 units of epinephrine, 30 mg of Toradol) Specimen's removed: Bony cuts, acetabular reamings Estimated Blood Loss (mL): 500 Fluids Replaced: 1000 mL crystalloid Description of Procedure: C components used: 1. Accolade 2 Nimco femoral stem size 8 127? 2. Nimco trident 2 acetabular shell size 58 mm 3. Nimco X3 polyethylene f 4. Nimco Biolox delta 36mm, -5mm femoral head Brief history operative indications: 63 yo m who failed conservative measures for their hip osteoarthritis. X-rays were consistent with osteoarthritis including joint space narrowing, osteophyte formation and subchondral cysts. Total hip replacement was discussed with the patient with risks and benefits including but not limited to blood loss, DVTs, PEs, neurovascular damage, dislocation, general risks of anesthesia including loss of life. Patient demonstrated an understanding medical clearance is obtained the patient was consented for surgery. Procedure: On the date of procedure the patient's R hip was marked in the preoperative area. Patient was then taken back to the operating room where anesthesia assumed control of the C-spine and airway and administered anesthetic. Patient was transferred to the operating table and placed in the supine position. The hips were placed at the break of the bed and a sacral bump was placed. The R lower extremity was then prepped out in a sterile fashion using chlorhexidine while the surgeon scrubbed. The PA was vital in the positioning of the patient. Upon reentering the room the R lower extremity was draped in the standard orthopedic fashion and the incision was marked. A timeout was called and everyone agreed upon the side, the site, the procedure be performed, antibody given, and patient's identity. At this time incision was made through skin, subcutaneous tissue, and fat down to fascia. The fascia was then incised and the TFL was retracted laterally. A retractor was placed on the lateral border of the femoral neck. Attention was directed to the inferior portion of the approach and all crossing vessels were identified and appropriately coagulated. A retractor was then placed on the medial portion of the femoral neck. The anterior capsule was then cleared of all soft tissue and then H shaped capsulotomy was made. The retractors were then placed inside the capsule. The femoral neck was identified and a cleanup cut was made. At this time a power corkscrew was used to remove the femoral head. Attention was then turned toward the acetabulum where the soft tissues were ap propriately retracted and the acetabulum was sequentially reamed to 58 mm. A 58 mm cup was then selected and impacted into place. Acetabular liner was impacted into place and locking mechanism was verified. The position of the acetabular cup was then verified under live fluoroscopy. Attention was then turned to the femur. Soft tissue releases on the medial and lateral femoral neck were appropriately done, the leg was externally rotated and lateralized. A Kohli retractor was placed medially and proximally to the greater trochanter this allowed appropriate visualization and exposure of the femoral canal. Rongeour was then used to remove excess lateral bone. A canal finder and entry broach were used to open the proximal canal. Once we verified we were down the femoral canal we subsequently broached up to a size 7 femur. The appropriate neck was placed in the previously selected head was trialed with a -5 mm neck. Traction was pulled and the hip was reduced with internal rotat ion. Once it was appropriately reduced and stability was checked. There was minimal shuck, equal leg lengths and appropriate stability with hyperextension and external rotation as well as with 90? flexion and internal rotation. Fluoroscopy was then also used to verify the position of the components and leg lengths using the contralateral side for comparison. Leg lengths seem short and the stem did not completely fill the canal. At this time we dislocated hip. We broached to a size 8. A size 8 stem was selected it was slightly prouder than the previous broaching. Stem was placed and then we trialed again. This time we trialed with a -5 and the hip was too long. At this time we dislocated the hip. We removed the size 8 stem. The stem was damaged upon removal. We broached to size 8 stem deeper and placed a new size 8 stem. With a -5 trial this gave us appropriate leg lengths and offset. The hip was also stable. The trial components were then dislocated the proximal femur was again exposed and the components were removed from the wound. The final components were verified and opened. The wound was copiously irrigated out with normal saline. The acetabulum was checked for any residual debris. The final components were placed and impacted. Traction and internal rotation were again used to reduce the hip. After adequate reduction the hip remained stable with appropriate leg lengths. The final components were once again checked with live fluoroscopy and were found to be satisfactory. The wound was then copiously irrigated with normal saline once more, and hemostasis was obtained. Closure was then done using #1 Vicryl runner to close the fascia. A 2-0 vicryl interuppted sutures were used to close the subcutaneous skin. A 3-0 Monocryl and Steri-Strips were used for final skin closure. A Silverlon dressing was placed. Patient was awakened by anesthesia and transferred to the [facility]. Patient was then transferred to the PACU for recovery. Postoperative plan: Patient will get 24 hours postop antibiotics. Patient will get in-house physical therapy and will be weight-bear as tolerated. Patient will follow up in office in 2 weeks for a wound check and x-rays. During the course of the procedure the physician preschool teacher assistant played a vital role. His intimate knowledge of my steps in the procedure aided in safe and expedient completion of the procedure. The PA played a vital rolls in positioning particularly in obtaining the appropriate positioning of the sacral bump. The PA was also vital in the retraction of soft tissues during the exposure and especially the femoral work as this is a vital part of the procedure to prevent complications and fractures. The PA was also vital and protecting soft tissues during times of bony cuts and reaming. He also played a vital role in closure with my direct supervision. The PA was also important during reduction and dislocation of the joint and trials intraoperatively. Grafts/Implants Used: Nimco - Complications No intraoperative complications - Admit VTE Documentation VTE Present on Admission: No VTE Mechan Device Prophylaxis: SCD's, Thigh High SANDRITA Hose VTE Pharm Prophylaxis ordered?: Yes
--- NOTE | 2018-11-06 16:40 | RAD_ITS ---
STUDY: X-RAY - PELVIS AND RIGHT HIP REASON FOR EXAM: Male, 63 years old. Postop TECHNIQUE: 3 views of the pelvis and hip. COMPARISON: November 06, 2018. FINDINGS: Right hip prosthesis is noted in anatomic alignment and position. There is no evidence for acute pelvic fracture. There are mild degenerative changes of the left hip RAD/Hip Min 2 Views (Portable) IMPRESSION: Status post right hip prosthesis placement Electronically Signed: Alex Marx MD at 16:59 EDT , Service support ,
[2018-11-06 17:36] LABS: Bedside Glucose 160 mg/dL (70-110)
[2018-11-06] MEDS: dexAMETHasone 10 MG/ML Vial IV (18:23)
[2018-11-06] MEDS: Lactated Ringers 1,000 ML 125 ML IV ×2 (18:23→19:31)
--- NOTE | 2018-11-06 19:40 | PN_ITS ---
Subjective: 83-year-old male in normal health presented for scheduled right hip replacement due to pain. He underwent procedure today and he did well. He states that he is in his usual health and has not had any changes in his medications prior to this procedure. Of note, he does have a history of stage III pancreatic cancer that he is undergoing chemotherapy and intensive radiation therapy. 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 Vitals/I&O's: Vital Signs Temp Pulse Resp BP Pulse Ox 97.6 F L 78 16 109/60 95 11/06/18 18:04 11/06/18 18:04 11/06/18 18:04 11/06/18 18:04 11/06/18 18:04 Oxygen Flow Rate (L/min) 6 Oxygen Delivery Method Room Air Weight: 250 lb 3.594 oz Body Mass Index (BMI) 33.9 Finger Stick Blood Glucose 160 Intake and Output for Last 24 Hours 11/04/18 11/05/18 11/06/18 23:59 23:59 23:59 Intake Total 1800 / 1800 Balance 1800 / 1800 General: Alert, Oriented x3, Cooperative, No apparent distress HEENT: Atraumatic, PERRLA, EOMI, Normocephalic Oral: Moist Mucosa Neck: Supple, No JVD Lungs: Clear to auscultation, Normal air movement, No rhonchi, No wheeze, No rales, Diminished Cardiovascular: Regular rate, Regular Rhythm, Normal S1, Normal S2, No murmurs Abdomen: Soft, Non Tender, Non-Distended, No Hepato-splenomegaly Extremities: No edema, Capillary Refill Less than 3 Seconds Skin: No rashes, No breakdown, Incision - Dressing is clean, dry and intact Neurological: Neuro grossly intact, Sensory exam intact to light touch and pain Psych/Mental Status: Normal Affect, Appropriate Laboratory Results 11/06/18 12:09: POC Glucose 115 H 11/06/18 17:20: POC Glucose 160 H Current Medications Acetaminophen (Tylenol) 1,000 mg PO Q8 [facility] Enteral Nutritional Formula (Ensure Surgery) 237 ml PO TIDCM RAKESH Last Admin: 11/06/18 18:22 Dose: Not Given Documented by: Famotidine (Pepcid) 20 mg PO DAILY [facility] Fentanyl (Duragesic Patch) 25 mcg TRANSDERM. Q72H RAKESH Lactated Ringer's () 1,000 mls @ 125 mls/hr IV .Q8H RAKESH Last Admin: 11/06/18 19:31 Dose: 125 mls/hr Documented by: Cefazolin Sodium () 1 gm in 50 mls @ 150 mls/hr IV Q8 RAKESH Stop: 11/07/18 06:19 Insulin Human Lispro (Humalog Kwikpen (Bkc)) 1 - 6 unit SC Q4H PRN PRN; Protoco l PRN Reason: BG>/= 180, SEE PROTOCOL Stop: 11/06/18 19:45 Ketorolac Tromethamine (Toradol) 15 mg IV Q6H PRN PRN PRN Reason: MILD-MOD PAIN (1-10) Meloxicam (Mobic) 7.5 mg PO BID RAKESH Ondansetron HCl (Zofran) 4 mg IV Q8H PRN PRN PRN Reason: NAUSEA Oxycodone HCl (Oxyir) 2.5 mg PO Q4H PRN PRN PRN Reason: MOD-SEVERE PAIN (4-1010) Pantoprazole Sodium (Protonix) 40 mg PO DAILY RAKESH Promethazine HCl (Phenergan) 12.5 mg IM Q6H PRN PRN; Protocol PRN Reason: NAUSEA/VOMITING Rivaroxaban (Xarelto) 10 mg PO DAILY@0600 [facility] Senna/Docusate Sodium (Senokot-S, Maru-Colace) 2 tablet PO BID [facility] Sodium Chloride () 10 - 40 ml IV UD PRN PRN Reason: SALINE FLUSH Medical Necessity - Tobacco Use Smoking Status: Never smoker Tobacco Use: Non-smoker Assessment/Plan All Active Problems (Last Reviewed 10/03/18 @ 10:43 by Ellen Feng) Chemotherapy management, encounter for (Acute) Cancer-related pain (Acute) Educational circumstance (Acute) 1. Postop total right hip replacement -Pain management per primary -PT/OT -DVT per primary 2. HTN -Blood pressure is stable -Hold his lisinopril, continue with IV fluids and recheck his creatinine in the morning if his creatinine is normal then can restart his lisinopril. 3. Elevated A1c -A1c is 6.4, will recommend diet and exercise instead of medications at the moment 4. GERD -Stable -Continue with PPI 5. Pancreatic cancer stage III -Undergoing chemotherapy and radiation therapy -The cancer is wrapped around the superior mesenteric artery and therefore he is not an operative candidate -He gets monitoring MRIs every 3 months DVT: Xarelto Code Visit Inpatient E&M: [id number] [facility] Hosp L3
[2018-11-06] MEDS: Cefazolin 1 GM/50 ML BAG IV (22:23)
[2018-11-06] MEDS: Senna/Docusate Sodium 1 Tablet 2 TABLET PO (22:23)
[2018-11-07 03:17] VITALS: BP 107/47; PULSE 74; RESP 16; TEMP 36.8; O2SAT 93
[2018-11-07] MEDS: Acetaminophen 500 MG Tablet 1000 MG PO (05:44)
[2018-11-07] MEDS: Cefazolin 1 GM/50 ML BAG IV (05:45)
[2018-11-07] MEDS: Rivaroxaban 10 MG Tablet PO (05:45)
[2018-11-07] MEDS: oxyCODONE 5 MG Tablet 2.5 MG PO (05:48)
[2018-11-07] MEDS: 0.9% NaCl Peripheral Flush Adult/Peds IV (05:49)
[2018-11-07 05:51] VITALS: RESP 16; O2SAT 93
[2018-11-07 06:00] LABS: Hematocrit 31.7 % (40-54); Hemoglobin 9.8 g/dL (13.0-16.5); Mean Corp Hgb Conc 30.9 g/dL (32-36); Mean Corpuscular Hgb 26.8 pg (27.0-32.0); Mean Corpuscular Volume 86.8 fL (80-94); Mean Platelet Vol. 10.2 fl (6.2-12.0); Platelet Count 236 K/mm3 (150-450); RBC Distribution Width SD 41.2 fl (35.1-43.9); Red Blood Count 3.65 M/mm3 (4.6-6.2); White Blood Count 7.9 K/mm3 (4.4-11.0)
[2018-11-07 06:21] LABS: Anion Gap 6 (5-15); BUN 18 mg/dL (7-18); BUN/Creat Ratio 23.3 RATIO (10-20); Calcium,Total 8.3 mg/dL (8.5-10.1); Chloride 106 mmol/L (98-107); Creatinine, Serum 0.77 mg/dL (0.70-1.30); EST Glomerular Filtration Rate 109 mL/min (>60); Est Glom Filt Rate - Afr Amer 132 mL/min (>60); Estimated Creatinine Clearance 110.58 ml/min; Glucose 122 mg/dL (74-106); Potassium 4.5 mmol/L (3.5-5.1); Sodium Level 140 mmol/L (136-145)
[2018-11-07 09:29] VITALS: BP 93/59; PULSE 97; RESP 16; TEMP 37.1; O2SAT 98
[2018-11-07] MEDS: Senna/Docusate Sodium 1 Tablet 2 TABLET PO (10:01)
[2018-11-07] MEDS: Famotidine 20 MG Tablet PO (10:01)
[2018-11-07] MEDS: Meloxicam 7.5 MG Tablet PO (10:01)
[2018-11-07] MEDS: Pantoprazole Sodium 40 MG Tablet PO (10:01)
--- NOTE | 2018-11-07 10:12 | PN.ORTHO_ITS ---
Subjective: The patient was sitting in bedside chair upon examination. Patient denies any chest pain, shortness of breath, dizziness, lightheadedness, nausea or vomiting, or calf pain. Pain is controlled on medications. No adverse overnight events. Overall patient is doing very well and does wish to go home today. Objective: Vital signs stable and afebrile. Patient is able to plantarflex and dorsiflex actively. Sensation is intact to light touch to saphenous, sural, superficial and deep peroneal, and tibial distribution. Dressing is clean dry and intact. Negative Homans bilaterally, negative signs and symptoms of DVT. - Physical Exam General: Alert, Oriented x3, Cooperative, No apparent distress Vital Signs Temp Pulse Resp BP Pulse Ox 98.7 F 97 16 93/59 L 98 11/07/18 09:29 11/07/18 09:29 11/07/18 09:29 11/07/18 09:29 11/07/18 09:29 Oxygen Flow Rate (L/min) 6 Oxygen Delivery Method Room Air Weight: 113.5 kg Body Mass Index (BMI) 33.9 Finger Stick Blood Glucose 160 Intake and Output for Last 24 Hours 11/05/18 11/06/18 11/07/18 23:59 23:59 23:59 Intake Total 1800 / 2700 1825 / 1825 Output Total 700 / 700 Balance 1800 / 2200 1125 / 1125 Laboratory Tests Past 24 Hrs 11/07/18 11/07/18 05:40 05:40 WBC 7.9 RBC 3.65 L Hgb 9.8 L Hct 31.7 L MCV 86.8 MCH 26.8 L MCHC 30.9 L RDW Std Deviation 41.2 RDW Coeff of Raciel 13.0 Plt Count 236 MPV 10.2 Sodium 140 Potassium 4.5 Chloride 106 Carbon Dioxide 28.0 Anion Gap 6 BUN 18 Creatinine 0.77 Estim Creat Clear Calc 110.58 Est GFR (MDRD) Af Amer 132 Est GFR (MDRD) Non-Af 109 BUN/Creatinine Ratio 23.3 H Glucose 122 H Calcium 8.3 L POC Glucose 11/06/18 11/06/18 17:20 12:09 POC Glucose 160 H 115 H Medical Necessity - Tobacco Use Smoking Status: Never smoker Tobacco Use: Non-smoker Assessment/Plan All Active Problems (Last Reviewed 10/03/18 @ 10:43 by Ellen Feng) Chemotherapy management, encounter for (Acute) Cancer-related pain (Acute) Educational circumstance (Acute) 1. S/P right direct anterior total hip arthroplasty POD #1 2. Continue Pain Medications: Tylenol and OxyIR 3. DVT Prophylaxis: Xarelto 4. PT/OT: Weightbearing as tolerated 5. H & H: 9.8/31.7, asymptomatic 6. Continue postoperative medical management per medicine 7. Encouraged Incentive Spirometry 8. Disposition: Plan will be for possible discharge home today as long as patient's pain is well controlled and tolerates physical therapy. Case was discussed with medicine. Prescriptions will be sent to primary pharmacy and n arcotic will be attached to chart. Patient will follow-up per postop instructions.
--- NOTE | 2018-11-07 10:20 | DCINST_ITS ---
Discharge Diet: No Restrictions Discharge Activity: May Not Drive - while taking narcotic pain medications. May shower in (days): 1 - Turn dressing away from water Ice area for (Minutes): 20 - Every 1-2 hours while awake Weight Bearing Status: Weight bearing as tolerated Elevate: Operative Extremity Additional Activity Instructions:: Wear elastic stockings for 2 weeks. DO NOT use alcohol with narcotic pain medication. DO NOT make important decisions while taking narcotic medication. If you have problems with taking your medication (rash, itching, nausea, etc.) call the office at once. Call your doctor if your incision/area has: Increased Pain/ Swelling, Increased Redness, Foul Smelling Discharge Call your doctor if you observe: Fever of 101 or Higher Remove Dressing in (days):: 4 - Okay to remove dressing on November 11, 2018 Additional Instructions: Follow [facility] postop instructions Allergies/Adverse Reactions: Allergies No Known Allergies Allergy (Verified 10/18/18 08:53) Medications to take at Discharge Fentanyl 1 ea TD UD 10/23/17 Lisinopril 20 mg PO DAILY 10/18/18 Pantoprazole Sodium [Protonix] 40 mg PO DAILY 10/18/18 Acetaminophen [Tylenol] 1,000 mg PO Q8 #100 tab 11/07/18 Meloxicam [Mobic] 7.5 mg PO BID #30 tab 11/07/18 Oxycodone [Oxyir] 2.5 mg PO Q4H PRN PRN #10 tab 11/07/18 Rivaroxaban [Xarelto] 10 mg PO DAILY@0600 #13 tab 11/07/18 Senna/Docusate Sodium [Senokot-S] 2 tab PO BID #20 tab 11/07/18 The following prescriptions were given: Meloxicam [Mobic] 7.5 mg PO BID #30 tab Transmission Status: Pending to [facility] Oxycodone [Oxyir] 2.5 mg PO Q4H PRN PRN #10 tab PRN Reason: Mod-Severe Pain () Prescription Printed Senna/Docusate Sodium [Senokot-S] 2 tab PO BID #20 tab Transmission Status: Pending to [facility] Acetaminophen [Tylenol] 1,000 mg PO Q8 #100 tab Transmission Status: Pending to [facility] Rivaroxaban [Xarelto] 10 mg PO DAILY@0600 #13 tab Transmission Status: Pending to [facility] Primary Care Physician: Robert Rodríguez DO [Primary Care Provider] - Test Results: Test results from this visit will be discussed in further detail at your follow- up appointment, if applicable. Please Follow Up With: [facility] When: 11/11/18 @ 8:00 am Please Follow Up With: Alexey Krishnamruthy PA-C When: 11/20/18 @ 8:15 am
--- NOTE | 2018-11-07 11:11 | CASEMGMT ---
RN CM Assessment Presentation: Rt anterior total hip Intro role of CM and purpose of RN CM assessment to patient in room. Demographics, PCP and Pharmacy verified. Pt states he lives @ home with his who will be able to assist him. can drive to f/u and physical therapy. Appt for Therapy listed for 11/11/18 @ 8 am @ [facility]. PCP: Dr. Robert Rodríguez Specialists: Preferred Pharmacy: [facility] Insurance: MMO Prescription Benefit: yes. [employer] savings card given to pt. LNOK: , Teena Gallo Living Arrangements: Lives independently in home. is able to assist pt at home. No care needs identified. See PT/OT notes for details. Transportation: is able to drive DME: walker, commode, grab bars, walk in shower. HHC: none Patient DC goals: Home with Outpt PT DC PLAN: Home with Outpt PT Graeme MORAN RN ACM
--- NOTE | 2018-11-07 12:46 | PCM.PROGNOTE ---
<Aneudy Aguilar - Last Filed: 11/07/18 12:46> Subjective: doing well. Some pain and muscle tightness in the thigh of the right leg. ROM intact. No SOB/fevers/chills. No plans for further treatment of his pancreatic cancer. - Physical Exam General: Alert, Oriented x3, Cooperative HEENT: Atraumatic, PERRLA, EOMI, Normocephalic Neck: Supple, No JVD, Negative Carotid Bruits Lungs: Clear to auscultation, Normal air movement Cardiovascular: Regular rate, No murmurs Abdomen: Bowel Sounds Present, Soft, Non Tender Extremities: No edema, Capillary Refill Less than 3 Seconds Skin: No rashes, No breakdown Musculoskeletal: No Tenderness to Palpation of Joints or Extremities Neurological: Cranial nerves II-XII grossly intact Psych/Mental Status: Normal Affect, Appropriate, Alert and oriented to time, place, person, mood and affect Vital Signs Temp Pulse Resp BP Pulse Ox 98.7 F 97 16 93/59 L 98 11/07/18 09:29 11/07/18 09:29 11/07/18 09:29 11/07/18 09:29 11/07/18 09:29 Oxygen Flow Rate (L/min) 6 Oxygen Delivery Method Room Air Weight: 250 lb 3.594 oz Body Mass Index (BMI) 33.9 Finger Stick Blood Glucose 160 Intake and Output for Last 24 Hours 11/05/18 11/06/18 11/07/18 23:59 23:59 23:59 Intake Total 1800 / 2700 1825 / 1825 Output Total 700 / 700 Balance 1800 / 2200 1125 / 1125 Laboratory Tests Past 24 Hrs 11/07/18 11/07/18 05:40 05:40 WBC 7.9 RBC 3.65 L Hgb 9.8 L Hct 31.7 L MCV 86.8 MCH 26.8 L MCHC 30.9 L RDW Std Deviation 41.2 RDW Coeff of Raciel 13.0 Plt Count 236 MPV 10.2 Sodium 140 Potassium 4.5 Chloride 106 Carbon Dioxide 28.0 Anion Gap 6 BUN 18 Creatinine 0.77 Estim Creat Clear Calc 110.58 Est GFR (MDRD) Af Amer 132 Est GFR (MDRD) Non-Af 109 BUN/Creatinine Ratio 23.3 H Glucose 122 H Calcium 8.3 L POC Glucose 11/06/18 11/06/18 17:20 12:09 POC Glucose 160 H 115 H Medical Necessity - Tobacco Use Smoking Status: Never smoker Tobacco Use: Non-smoker Assessment/Plan All Active Problems (Last Reviewed 10/03/18 @ 10:43 by Ellen Feng) Chemotherapy management, encounter for (Acute) Cancer-related pain (Acute) Educational circumstance (Acute) 1. Right total hip post op D# - as per ortho. Plans to return home today. 2. Pancreatic cancer stage III - no further treatment. Appears to be doing well for now. MRI q3 months per Dr. Carrasco. 3. Elevated A1C - prediabetes 6.4 A1C. Weight loss, exercise, dietary change recommended 4. GERD - PPI 5. HTN - stable DVT ppx: xarelto This patient was seen by Aneudy Aguilar PA-C under the supervision of Dr. Santiago. <Sue Santiago - Last Filed: 11/07/18 14:02> - Physical Exam Vital Signs Temp Pulse Resp BP Pulse Ox 98.7 F 97 16 93/59 L 98 11/07/18 09:29 11/07/18 09:29 11/07/18 09:29 11/07/18 09:29 11/07/18 09:29 Oxygen Flow Rate (L/min) 6 Oxygen Delivery Method Room Air Weight: 113.5 kg Body Mass Index (BMI) 33.9 Finger Stick Blood Glucose 160 Intake and Output for Last 24 Hours 11/05/18 11/06/18 11/07/18 23:59 23:59 23:59 Intake Total 1800 / 2700 1825 / 1825 Output Total 700 / 700 Balance 1800 / 2200 1125 / 1125 Laboratory Tests Past 24 Hrs 11/07/18 11/07/18 05:40 05:40 WBC 7.9 RBC 3.65 L Hgb 9.8 L Hct 31.7 L MCV 86.8 MCH 26.8 L MCHC 30.9 L RDW Std Deviation 41.2 RDW Coeff of Raciel 13.0 Plt Count 236 MPV 10.2 Sodium 140 Potassium 4.5 Chloride 106 Carbon Dioxide 28.0 Anion Gap 6 BUN 18 Creatinine 0.77 Estim Creat Clear Calc 110.58 Est GFR (MDRD) Af Amer 132 Est GFR (MDRD) Non-Af 109 BUN/Creatinine Ratio 23.3 H Glucose 122 H Calcium 8.3 L POC Glucose 11/06/18 17:20 POC Glucose 160 H Assessment/Plan This patient was seen in conjunction with GERALDO Wilkins. I have independently interviewed and examined the patient and reviewed pertinent historical, laboratory, and other data. Please refer to GERALDO Wilkins note for his patient's presentation, findings, and recommendations. I have reviewed and his note and concur with his documentation Patient was seen and examined. His pain is controlled. He is working with physical and occupational therapy. He denied any new complaints. He underwent right total hip replacement yesterday. His vitals look stable. He is being discharged today. Physical Exam: Gen: Comfortable, not pale, not jaundiced CVS:HS I +II, regular, no murmurs RESP: Diminished at lung bases GI: BS present and normal, soft, nontender, no palpable organs EXT:No edema, tenderness over the right hip, dressing anterior, intact, clean ASSESSMENT: 1. Postop anemia secondary to blood loss 2. Postop day #1 status post total hip replacement 3. Hypertension 4. Pancreatic cancer stage III 5. Prediabetes Code Visit Inpatient E&M: 58311 Subs Hosp L2
== END 2018-11-07 14:12 | disposition home or self-care (01) | DRG 470 ==
LOC: ACINP 11:09 → MS3 15:04
PROVIDERS: Admitting Provider Specialist; Family Provider Family Medicine; PCP Family Medicine; Referring Provider Specialist; Visit Provider Internal Medicine
PROC: 0SR90JA Replacement of Right Hip Joint with Synthetic Substitute, Uncemented, Open Approach (ICD-10-PCS; CPT 27284; principal; 2018-11-06 13:20)
DX: M16.11 Unilateral primary osteoarthritis, right hip (principal); C25.9 Malignant neoplasm of pancreas, unspecified; D62 Acute posthemorrhagic anemia; Z79.899 Other long term (current) drug therapy; I10 Essential (primary) hypertension; K21.9 Gastro-esophageal reflux disease without esophagitis; E11.9 Type 2 diabetes mellitus without complications; E78.00 Pure hypercholesterolemia, unspecified; Z85.47 Personal history of malignant neoplasm of testis
CPT/HCPCS: 73501; 73502; 76000; 80048; 82962; 83036; 85025; 85027; 87081; 88305; 88311; 93005; 97110; 97162; 97166; 97530; 99251; C1776; J7120; A4216; G0463

== ENCOUNTER → 2019-01-03 | Outpatient (CLI) | payer OTHER, SELFPAY ==
[2018-10-03 10:45] VITALS: BMI 34.4
--- NOTE | 2019-01-03 08:48 | MRI_ITS ---
ACR Level 3 findings have been noted. An addendum which confirms receipt of the report will follow. STUDY: MRI ABDOMEN WITH AND WITHOUT CONTRAST REASON FOR EXAM: Male, 63 years old. There are cancer follow-up. Pain. TECHNIQUE: Standardized fat and water weighted pulse sequences were obtained in all 3 orthogonal planes post contrast administration. 23 ML Dotarem was administered for the contrast portion of the examination. COMPARISON: September 23, 2018 FINDINGS: The visualized lung bases are unremarkable. The visualized portions of the heart are within normal limits. There are multiple, greater than 25, peripherally enhancing masses in the liver measuring 1.5 to 2.5 cm.s Normal gallbladder and extrahepatic biliary system. Normal spleen. There is stable 1.9 cm mass adjacent to the tail of the pancreas suggesting splenule. There are additional small splenules. There is improvement of previously noted mass surrounding the proximal superior mesenteric artery with residual 1.0 cm diminished signal region. Normal bilateral adrenal glands. Small renal cysts. No hydronephrosis.. Normal visualized stomach. Normal small intestine. Normal colon. The appendix is visualized and appears normal. Normal abdominal aorta. Normal inferior vena cava. Normal retroperitoneum. Normal abdominal wall. Normal osseous structures. MRI/MRI Abd WITH and W/O Contrast IMPRESSION: Multiple masses in liver consistent with metastatic disease. Continued improvement of previously noted mass adjacent to the superior mesenteric artery. Electronically Signed: Randall Higgins MD at 11:12 EDT , Service support ,
[2019-01-03 09:35] LABS: CREATININE FINGERSTICK 0.8 mg/dL (0.70-1.30); EGFR FINGERSTICK > 60.0000 mL/min (>60)
== END | disposition home or self-care (01) ==
LOC: MRI 08:43
PROVIDERS: Family Provider Family Medicine; PCP Family Medicine; Referring Provider Internal Medicine Medical Oncology; Visit Provider Internal Medicine Medical Oncology
DX: C25.9 Malignant neoplasm of pancreas, unspecified (principal)
CPT/HCPCS: 74183; A9575

== ENCOUNTER → 2019-01-08 | Outpatient (CLI) | payer OTHER, SELFPAY ==
[2019-01-07 10:59] VITALS: BMI 31.7
[2019-01-08] VITALS (9 sets, daily range): BP systolic 117–177; BP diastolic 62–98; PULSE 88–101; RESP 10–18; TEMP 36.6; O2SAT 94–99; BMI 31.1
--- NOTE | 2019-01-08 | ASPIGT_PTH ---
PATIENT: JACOB CANALES LOC: [place] U#:[id number] AGE/SX: 63/M ROOM: RE01/08/[address]: Dr. Nisa Cooley MD : 1955 BED: DIS: 01/08/2019 SPEC #: [id number] RECD: 01/08/19 09:50 STATUS: ANGEL REQ #: [id number] MELE: 01/08/19 00:[address]: Brett Carrasco DEPT: SURGICAL PATHOLOGY RECD BY: Rj Silva ENTERED: 01/08/19 10:15 SP TYPE: ASP RAD OTHR DR: DO Dr. Nisa Jeffrey MD Tissues: Liver, NOS Procedures: FNA Specimen Adequacy Special Stain Group II Surgery Specimen Level V Imprint (control) Comments: @ Ordering doctor for SSII edited from to DR.JPRAH English by QUYNH at 01/10/19 0957 @ Ordering doctor for SUV edited from to DR.JPRAH English by QUYNH at 01/10/19 0957 @ Ordering doctor for IMPRINT edited from to DR.JPRAH English by QUYNH at 01/10/19 0957 @ Ordering doctor for FNASA edited from to DR.JPRAH English by QUYNH at 01/10/19 0957 @ Submitting doctor edited from to DR.JPRAH English by QUYNH at 1955 HEADER OPERATION: CT guided liver biopsy PRE-OP DIAGNOSIS: Liver mass TISSUE SUBMITTED: Liver mass, 18 gauge x5 MICROSCOPIC DIAGNOSIS Liver mass, CT-guided core biopsy: Consistent with metastatic non-small cell carcinoma, favor adenocarcinoma. See comment. SJ:jazmin 01/09/19 COMMENT The specimen is evaluated at the time of CT guided core biopsy by Dr. Calvert. Immediate Evaluation: Set #1 = Negative for malignant cells (one touch imprint). Set #2 = Atypical cells suspicious for non-small keyona carcinoma are noted (two touch imprints). Immunohistochemistry ([id number]) supports the above diagnosis; IHC profile and morphology are consistent with clinical impression of pancreatic primary. Please refer to IHC report ([id number]) for results of mismatch repair of proteins. The specimen is sent for NTRK gene studies to [facility] and results will be reported as an addendum. Please make reference to previous specimen from [facility] dated 10/04/2017 ([id number]) pancreas mass, uncinate process, fine needle aspiration with diagnosis of positive for malignant cells, adenocarcinoma. This case is discussed with Dr. Carrasco on 01/10/19. Case has been reviewed in consultation with Dr. Segura who concurs with the above diagnosis. IDC:AM MICROSCOPIC DESCRIPTION Slides are reviewed. GROSS DESCRIPTION Received in fixative is one container labeled with the patient's name and designated liver, CT-guided core biopsy. The specimen consists of multiple elongated fragments of de la fuente soft tissue that in aggregate measure 2.5 x 0.3 x 0.1 cm. The entire specimen is submitted in one cassette. Three touch imprints are prepared at the time of core biopsy. / SJ:rg 12/08/18 TC:0 CPT: 72337, 69561, 07445 ADDENDUM ADDENDUM ADDENDUM ADDENDUM ADDENDUM ADDENDUM ADDENDUM ADDENDUM ADDENDUM ADDENDUM ADDENDUM ADDENDUM 01/31/2019 10:28 ADDENDUM 01/31/2019 10:28 ADDENDUM 01/31/2019 10:28 ADDENDUM 01/31/2019 10:28 ADDENDUM 01/31/2019 10:28 MOLECULAR PATHOLOGY REPORT, AMP FUSION ASSAY FROM [facility] ([facility] / [employer]) RESULTS: Targeted RNA next generation sequencing (NGS) using Anchored Multiplex PCR (AMP) detected no fusion transcripts in the specified exons of the following genes: ALK (1,3,17,19-22,29), RET (1,8-13,19), and ROS1 (1,31-37,43). No NTRK 1/2/3 fusions were identified. INTERPRETATION: NEGATIVE for ALK / RET / ROS1 rearrangement. Please see complete report in e-chart or EMR for further details
--- NOTE | 2019-01-08 | IMM_PTH ---
PATIENT: JACOB CANALES LOC: [place] U#:[id number] AGE/SX: 63/M ROOM: RE01/08/[address]: Dr. Nisa Cooley MD : 1955 BED: DIS: 01/08/2019 SPEC #: [id number] RECD: 01/09/19 12:32 STATUS: SOUMarito REQ #: [id number] MELE: 01/08/19 00:[address]: Brett Carrasco DEPT: IMMUNOHISTOCHEMISTRY RECD BY: Helena Diaz ENTERED: 01/09/19 12:34 SP TYPE: IMMUNO OTHR DR: DO Dr. Nisa Jeffrey MD Tissues: Liver, NOS Procedures: MSH2 (add) MLH-1 (add) MSH6 (add) Anti-PMS2 (add) NAPSIN A (add) CK20 (add) CK5-6 (add) CK7 (add) CK8 (add) HEP PAR (add) KI-67 (add) P53 (add) TTF1 (add) Pankeratin (initial) P40 (add) PSAP (add) Comments: @ Ordering doctor for RCC. edited from to @ by QUYNH at 01/10/19 0957 @ Ordering doctor for MSH2. edited from to @ by QUYNH at 01/10/19 0957 @ Ordering doctor for MLH1. edited from to @ by QUYNH at 01/10/19 0957 @ Ordering doctor for MSH6. edited from to DR.JPRAH English by QUYNH at 01/10/19 0957 @ Ordering doctor for PMS2. edited from to @ by RGOOD at 01/10/19 0957 @ Ordering doctor for NAP. edited from to DR.JPRAH English by QUYNH at 01/10/19 0957 @ Ordering doctor for CK20. edited from to DR.JPRAH English by QUYNH at 01/10/19 0957 @ Ordering doctor for CK5-6. edited from to DR.JPRAH English by QUYNH at 01/10/19 0957 @ Ordering doctor for CK7. edited from to DR.JPRAH English by QUYNH at 01/10/19 0957 @ Ordering doctor for CK8. edited from to DR.JPRAH English by QUYNH at 01/10/19 0957 @ Ordering doctor for HEPPAR. edited from to DR.JPRAH English by QUYNH at 01/10/19 0957 @ Ordering doctor for KI67. edited from to DR.JPRAH English by QUYNH at 01/10/19 0957 @ Ordering doctor for P53. edited from to DR.JPRAH English by QUYNH at 01/10/19 0957 @ Ordering doctor for TTF1. edited from to DR.JPRAH English by QUYNH at 01/10/19 0957 @ Ordering doctor for PANK edited from to DR.JPRAH English by QUYNH at 01/10/19 0957 @ Ordering doctor for P40. edited from to DR.JPRAH English by QUYNH at 01/10/19 0957 @ Ordering doctor for PSAP. edited from to DR.JPRAH English by QUYNH at 01/10/19 0957 @ Submitting doctor edited from to DR.JPRAH English by QUYNH at 01/10/19 0957 PHYSICIAN & INSTITUTION [facility] [address] [place] [address] Jazmin Parikh [id number] SPECIMEN INFORMATION: Tissue Source: Liver mass, CT-guided core biopsy Clinical Info: Liver mass Specimen Number: [id number] CPT code: 25764, 18128 x15 METHODOLOGY: Deparaffinized sections of prefer/formalin-fixed tissue or PAP/DQ stained slides are incubated with monoclonal/polyclonal antibodies/oligonucleotide probes. Localization is made via biotin free immunoperoxidase method. Appropriate controls are performed and reacted as expected. Results on target cell population are indicated in the following table: RESULTS: ANTIBODY / CLONE RESULT AE1-3 (AE1/AE3/PCK26) positive CK7 (OV-TL12/30) positive CK8 (14ebutA03) positive CK20 (KS20.8) negative TTF-1 (8G7G3/1) negative CK5-6 (D5 & 1684) negative Napsin A (Rabbit Polyclonal) negative P40 (BC28) negative (high background staining) HepPar (OCh1E5) negative PSAP (PASE/4LJ) negative Ki-67 (30-9) positive, moderate P53 (DO-7) positive, low MLH-1 (M1) positive MSH2 (25D12) positive MSH6 (44) positive PMS2 (YVA3042) positive These tests were developed and their performance characteristics determined by [facility]. They may not have been cleared or approved by the U.S. Food and Drug Administration. The FDA has determined that such clearance or approval is not necessary. INTERPRETATION: Liver mass, CT-guided core biopsy: Metastatic non-small cell carcinoma, favor adenocarcinoma. Result of Microsatellite Instability Study: Negative (no loss of mismatch protein; no microsatellite instability detected). See comment. SJ:jazmin 01/10/19 Comment: IHC profile is compatible with clinical impression of pancreatic primary. Case has been reviewed in consultation with Dr. Segura who concurs with the above diagnosis. IDC:[id number]
--- NOTE | 2019-01-08 08:00 | CT_ITS ---
PROCEDURE: CT DIRECTED CORE LIVER BIOPSY INDICATION: Male, 63 years old. Multiple hepatic nodules. PHYSICIAN: Dr. Micah Ramos CONSENT: Written informed consent was obtained having explained the risks, benefits and alternatives in detail with the patient who accepted the risks and agreed to proceed. Laboratory review and clinical assessment was performed. CONSCIOUS SEDATION PROTOCOL: The Drugs used were: 2 mg Versed, IV., and 50 mcg Fentanyl, IV. The sedation time was: 30 minutes. Conscious sedation was started at 9:11 AM and terminated at 9:41 AM. The conscious sedation protocol was independently monitored. RADIATION DOSAGE (If Supplied By Facility): CTDIvol = ( 17.5 ) mGy, DLP = ( 695.73 ) mGycm Individualized dose optimization techniques were used for this CT. TECHNIQUE: Using CT image guidance with image documentation, a suitable location in the right lobe of the liver was identified. Using an anterior approach, puncture of the liver was uneventful with an 18-gauge core needle system. 5, 18-gauge core samples were obtained, and submitted in formalin to the pathologist for further assessment. Followup CT scan revealed no distinct sequelae. CT/Biopsy/Inj or Needle Placement IMPRESSION: 1. CT directed core needle biopsy of the liver, using CT image guidance with image documentation as described. 2. Conscious Sedation protocol utilized with independent monitoring. Electronically Signed: Jake Obrien, at 10:18 EDT , Service support ,
[2019-01-08] MEDS: fentaNYL 100 MCG/2 ML Ampul IV (09:12)
[2019-01-08] MEDS: Midazolam 2 MG/2 ML Syringe IV (09:13)
== END | disposition home or self-care (01) ==
PROVIDERS: Family Provider Family Medicine; PCP Family Medicine; Referring Provider Internal Medicine Hematology & Oncology; Visit Provider Internal Medicine Hematology & Oncology
DX: R16.0 Hepatomegaly, not elsewhere classified (principal)
CPT/HCPCS: 47000; 77012; 88172; 88305; 88307; 88313; 88341; 88342; 99156; 99157; J7040; A4216

== ENCOUNTER → 2019-03-24 07:10 | Outpatient (CLI) | payer OTHER, SELFPAY ==
[2019-03-17 09:26] VITALS: BMI 32.9
--- NOTE | 2019-03-24 07:12 | MRI_ITS ---
STUDY: MRI BRAIN WITH AND WITHOUT CONTRAST REASON FOR EXAM: Male, 63 years old. new onset dizziness, hx pancreatic ca TECHNIQUE: Standardized multiplanar fat and water weighted pulse sequences were obtained. 20ML iv DOTAREM was administered for the contrast portion of the examination. COMPARISON: None. FINDINGS: Normal size of the ventricles and extra-axial spaces for the patient''s age. There are a limited number of small white matter hyperintensities, distributed throughout the deep white matter tracts of the cerebral hemispheres, consistent with mild chronic white matter ischemic changes. Normal bilateral basal ganglia. Normal thalami. There is no extra-axial fluid accumulation. Normal flow voids within the major intracranial circulation suggesting patency by spin echo criteria. Normal venous enhancement. There is no enhancing intra-axial or extra-axial abnormality. Normal sella turcica, pituitary gland, infundibular stalk, optic chiasm and hypothalamus. Normal tectal plate and pineal gland. Normal midbrain, chela and medulla. Normal cerebellum. Normal basal cisterns. Normal bilateral temporal bones. Normal bilateral internal auditory canals. No demonstrated orbital abnormality, within the constraints of a routine brain study. Normal visualized paranasal sinuses. Normal calvarium and skull base. Normal visualized soft tissue structures. Normal visualized upper cervical spine. MRI/Brain W/WO Contrast IMPRESSION: No evidence of infarct, hemorrhage, or intracranial metastatic disease. Electronically Signed: Riley Zhou MD at 17:23 EST Tel , Service support ,
== END ==
PROVIDERS: Family Provider Family Medicine; PCP Family Medicine; Referring Provider Internal Medicine Medical Oncology; Visit Provider Internal Medicine Medical Oncology
DX: R42 Dizziness and giddiness (principal); C25.9 Malignant neoplasm of pancreas, unspecified; C78.7 Secondary malignant neoplasm of liver and intrahepatic bile duct
CPT/HCPCS: 70553; A9575; A4216